=== PATIENT | female | born 1970 | race Caucasian/White ===

== ENCOUNTER 2017-02-26 12:24 | Emergency (ER) | payer OTHER ==
--- NOTE | 2017-02-26 12:26 | PDOC ---
History of Present Illness - General Chief Complaint: Lightheaded Stated Complaint: DIZZY Time Seen by Provider: 02/26/17 12:25 History Source: Patient Exam Limitations: Language Barrier (FITNESS AND WELLNESS COORDINATOR : [id number]) - History of Present Illness Initial Comments: 02/26/17 12:45 02/26/17 12:47 This patient is a 47 yo F with a history of chronic back pain s/p accident earlier this year She reports that she had a slight headache this morning She went to physicial therapy and became vertiginous and developed a headache She reports that her headache was located in the front and back of her head Described as sharp, pressure Rated 8/10 Prior headache like this was when she was involved in her accident No nausea or vomiting EMS was called because she had labile blood pressures (pt states, BP was low and then went high) No chest pain, shortness of breath or palpitations No new neurologic PMH: denies PSH: cervical surgery 11/14/2016 Meds: pain medications ALL: NKDA Social: denies alcohol, drug, cigarette use PMD: [address] GENERAL/CONSTITUTIONAL: No: fever, chills, weakness, loss of appetite. HEAD, EYES, EARS, NOSE AND THROAT: No: change in vision, ear pain, discharge, sore throat, throat swelling. CARDIOVASCULAR: No: chest pain, lightheadedness, palpitations, syncope RESPIRATORY: No: cough, shortness of breath, wheezing, hemoptysis, stridor. GASTROINTESTINAL: Yes: nausea, vomiting, diarrhea, abdominal pain No:rectal bleeding, constipation. GENITOURINARY: No: dysuria, hematuria, frequency, urgency, flank pain. MUSCULOSKELETAL: No: back pain, neck pain, joint pain, muscle swelling or pain SKIN AND BREASTS: No: lesions, pallor, rash or easy bruising. NEUROLOGIC: No: headache, vertigo, paresthesias, weakness ENDOCRINE: No: unexplained weight gain or loss HEMATOLOGIC/LYMPHATIC: No: anemia, easy bleeding, swelling nodes. GENERAL: The patient is in no acute distress. HEAD: Normal with no signs of trauma. EYES: PERRLA, EOMI, sclera anicteric, conjunctiva clear. ENT: Ears normal, nares patent, oropharynx clear without exudates. Moist mucous membranes. NECK: Normal range of motion, supple without lymphadenopathy, JVD, or masses. LUNGS: Breath sounds equal, clear to auscultation bilaterally. No wheezes, and no crackles. HEART:Regular rate and rhythm, normal S1 and S2 without murmur, rub or gallop. ABDOMEN: Soft, nontender, normoactive bowel sounds. No guarding, no rebound. No masses palpable. EXTREMITIES: Normal range of motion, no edema. No clubbing or cyanosis. No erythema, or tenderness. NEUROLOGICAL: HINTS NEGATIVE, Cranial nerves II through XII grossly intact. Normal speech. No focal neurological deficits. MUSCULOSKELETAL: Back non-tender to palpation, no CVA tenderness SKIN: Warm, Dry, normal turgor, no rashes or lesions noted. 02/26/17 14:47 Past History - Past Medical History Allergies/Adverse Reactions: Allergies Allergy/AdvReac Type Severity Reaction Status Date / Time No Known Allergies Allergy Verified 02/26/17 12:25 Home Medications: Ambulatory Orders Meclizine HCl [Antivert -] 25 mg PO TID #21 tablet 02/26/17 Oxycodone HCl 0 mg PO PRN PRN 02/26/17 - Suicide/Smoking/Psychosocial Hx Smoking History: Never smoked Have you smoked in the past 12 months: No Hx Alcohol Use: No Substance Use Type: None Heart Score/ECG Review #1 ECG reviewed & interpreted by me at: 14:51 General ECG Interpretation: Sinus Rhythm, Normal Rate, Normal Intervals, No acute ischemic changes ED Treatment Course - LABORATORY CBC & Chemistry Diagram: 02/26/17 12:53 02/26/17 12:51 Medical Decision Making - Medical Decision Making 02/26/17 12:52 Pt presents with complaints of dizziness Peripheral cause suspected (pt is not ataxic, demonstrates no nystagmus, no vomiting, no CN deficits) HOWEVER, she also had a headache with this vertigo Will do: Labs Meclizine, tylenol and Reglan Will do CT (pt symptoms began within the past 6 hours, small chance of SAH, will image to be sure this is not the case) Will re assess 02/26/17 14:50 Laboratory Tests 02/26/17 02/26/17 02/26/17 12:51 12:53 12:53 WBC 4.9 Hgb 13.6 Hct 40.2 Plt Count 228 BUN 10 Creatinine 0.9 Calcium 9.3 Troponin I Serum , Qual Negative 02/26/17 12:53 WBC Hgb Hct Plt Count BUN Creatinine Calcium Troponin I < 0.03 L Serum , Qual CT head negative Patient's history and symptoms are consistent with benign positional vertigo of unknown etiology. Has been no recent illness, fever, chills to suggest labyrinthitis No evidence on physical exam or history of central cause for vertigo negative HINTS for stroke Patient with normal exam Patient reports almost complete symptomatic improvement with meclizine Patient able to ambulate patient able to eat, normal coordination no ataxia, no cerebellar signs ekg normal 02/26/17 14:51 *DC/Admit/Observation/Transfer Diagnosis at time of Disposition: Vertigo - Discharge Dispostion Disposition: HOME Condition at time of disposition: Stable Admit: No - Prescriptions Prescriptions: Meclizine HCl [Antivert -] 25 mg PO TID #21 tablet - Referrals Referrals: Mateus Rushing MD [Staff Physician] - - Patient Instructions Printed Discharge Instructions: DI for Benign Paroxysmal Positional Vertigo, DI for Vertigo Additional Instructions: Tasha por mal douglas al ER Por favor, siga con seo mdico de atencin primaria y el neurlogo Por favor tome meclizine segn sea necesario para vertigo por favor regrese al ER para cualquier preocupacin o queja Thank you for coming in to the ER today Please follow up with your primary care physician and the neurologist Please take meclizine as needed for vertigo please return to the ER for any concerns or complaints Print Language: [place]
[2017-02-26 12:32] VITALS: BP 154/90; PULSE 75; BMI 23.8
[2017-02-26] MEDS ORDERED: MECLIZINE HCL 25 MG TABLET (FP) PO ONE (12:46)
[2017-02-26] MEDS ORDERED: METOCLOPRAMIDE HCL INJECTION 10 MG/2 ML VIAL IVPB ONE (12:52)
[2017-02-26] MEDS ORDERED: ACETAMINOPHEN 1000 MG/100 ML VIAL (NON FORMULARY) IVPB ONE (12:52)
[2017-02-26] MEDS ORDERED: ACETAMINOPHEN INJECTION 100 ML IVPB ONE (12:55)
[2017-02-26 12:58] LABS: BASOPHIL 0.5 % (0-2.0); EOSINOPHIL 0.7 % (0-4.5); MCH 30.3 pg (25.7-33.7); MCHC 33.8 g/dl (32.0-36.0); MEAN CELL VOLUME 89.6 fl (80-96); MEAN PLT VOLUME 8.7 fl (7.5-11.1); NEUTROPHILS 60.2 % (42.8-82.8); PLATELET COUNT 228 K/MM3 (134-434); RDW 13.4 % (11.6-15.6); WHITE BLOOD COUNT 4.9 K/mm3 (4.0-10.8)
[2017-02-26 13:12] LABS: ANION GAP 5 (8-16); CALCIUM 9.3 mg/dl (8.4-10.2); CO2 26 mmol/L (22-28); CREATININE 0.9 mg/dl (0.6-1.3); GLUCOSE,RANDOM 118 mg/dl (74-106)
[2017-02-26] MEDS ORDERED: MECLIZINE HCL 25 MG TABLET (FP) ONE (13:23)
--- NOTE | 2017-02-27 09:36 | EKG ---
Test Reason : Blood Pressure : / mmHG Vent. Rate : 086 BPM Atrial Rate : 086 BPM P-R Int : 124 ms QRS Dur : 068 ms QT Int : 364 ms P-R-T Axes : 075 038 052 degrees QTc Int : 435 ms NORMAL SINUS RHYTHM NORMAL ECG NO PREVIOUS ECGS AVAILABLE Confirmed by JUAN GARCIA MD ([id number]) on 02/27/2017 9:35:47 AM Referred By: GREG JANE Confirmed By:JUAN GARCIA MD
== END 2017-02-26 15:03 | disposition home or self-care (01) ==
LOC: FER 12:24
PROC: 3E033NZ Introduction of Analgesics, Hypnotics, Sedatives into Peripheral Vein, Percutaneous Approach (ICD-10-PCS; principal; 2017-02-26)
PROC: 3E033GC Introduction of Other Therapeutic Substance into Peripheral Vein, Percutaneous Approach (ICD-10-PCS; 2017-02-26)
DX: R42 Dizziness and giddiness (principal)
CPT/HCPCS: 36415; 70450-TC; 80048; 84484; 84703; 85025; 93005; 93010; 96374; 96375; 99283-25